=== PATIENT | female | born 1950 | race Two or more races ===

== ENCOUNTER 2020-12-25 17:40 | Emergency (ER) | payer MEDICARE, OTHER ==
[~2020-12-25] VITALS: Ht 162.6 cm; Wt 86.2 kg
[2020-12-25 17:42] VITALS: BP 142/66
[2020-12-25] MEDS ORDERED: ONDANSETRON 4 MG TAB.RAPDIS ONE (18:25)
[2020-12-25] MEDS ORDERED: HYDROCODONE/APAP 10/325MG TABLET ONE (18:25)
[2020-12-25] MEDS: HYDROCODONE/APAP 10/325MG TABLET PO ONE (18:29)
[2020-12-25] MEDS: ONDANSETRON 4 MG TAB.RAPDIS SL ONE (18:29)
[2020-12-25] MEDS ORDERED: IBUP-1957 PO (18:37)
--- NOTE | 2020-12-25 18:45 | NUR ---
Patient discharged to home in stable condition. Written and verbal after care instructions given. Patient verbalizes understanding of instruction.
== END 2020-12-25 18:45 | disposition home or self-care (01) ==
LOC: ER 17:42
DX: S16.1XXA Strain of muscle, fascia and tendon at neck level, initial encounter (principal); S09.8XXA Other specified injuries of head, initial encounter; R51.9 Headache, unspecified; I10 Essential (primary) hypertension; E11.9 Type 2 diabetes mellitus without complications; E78.5 Hyperlipidemia, unspecified; E78.00 Pure hypercholesterolemia, unspecified; Z88.5 Allergy status to narcotic agent; V49.59XA Passenger injured in collision with other motor vehicles in traffic accident, initial encounter; Y93.89 Activity, other specified; Y92.488 Other paved roadways as the place of occurrence of the external cause; Y99.8 Other external cause status
CPT/HCPCS: 70450; 72125; 99285; Q0162